=== PATIENT | female | born 1955 | race Caucasian/White ===

== ENCOUNTER 2020-03-30 09:34 | Outpatient (CLI) | payer OTHER, SELFPAY ==
--- NOTE | ~2020-03-30 | MM_ITS ---
EXAMINATION: MM screening kye BI w daniele HISTORY: Screening mammogram TECHNIQUE: Craniocaudal and mediolateral oblique 3-D tomosynthesis images were obtained and synthetic 2-D images were generated. CAD analysis was submitted and interpreted. COMPARISON: No prior mammogram is available for comparison at this institution. BREAST PARENCHYMAL COMPOSITION: There are scattered areas of fibroglandular density. FINDINGS: Biopsy marker on the right; history of prior benign right breast biopsy. Multiple bilateral mid to lower outer breast masses are suggested. Bilateral diagnostic mammogram and bilateral breast ultrasound examination are recommended. IMPRESSION: 1. Multiple bilateral masses are suggested in the mid to lower outer breast. 2. Bilateral diagnostic mammography and bilateral breast ultrasound examination are recommended. BI-RADS Category 0: Incomplete: Needs additional imaging evaluation. Reviewed, dictated and finalized at location A.
== END 2020-03-30 09:35 | disposition home or self-care (01) ==
LOC: ANHIMG 09:38
PROVIDERS: PCP Family Medicine; Visit Provider Obstetrics & Gynecology
DX: Z12.31 Encounter for screening mammogram for malignant neoplasm of breast (principal); R92.8 Other abnormal and inconclusive findings on diagnostic imaging of breast
CPT/HCPCS: 77063; 77067

== ENCOUNTER 2020-04-20 11:46 | Outpatient (CLI) | payer OTHER, SELFPAY ==
--- NOTE | ~2020-04-20 | MMUS_ITS ---
EXAMINATION: MM diagnostic mammo BI, US breast BI complete HISTORY: Bilateral small masses suggested on 03/30/2020 bilateral digital screening mammogram examinati on TECHNIQUE: Additional full field mediolateral and spot ML, MLO and cc 3-D tomosynthesis images of bot h breasts were performed and synthetic 2-D images were generated. CAD analysis was submitted and inte rpreted. High resolution bilateral complete breast ultrasound was performed. COMPARISON: 03/30/2020 bilateral digital screening mammogram FINDINGS: MAMMOGRAPHIC FINDINGS: A circumscribed 4.5 mm mass is suggested in the mid outer right breast (MLO Tomosynthesis image 18/ ). There is a 5 mm probable lymph node the upper outer left breast (MLO Tomosynthesis image /). There is a circumscribed 3.3 mm opacity in the outer mid left breast (MLO Tomosynthesis image /). ULTRASOUND: Right breast: No suspicious mass or shadowing is detected. Left breast: 3:00 1 cm from nipple: 2 x 3 mm sonolucent lesion with no shadowing or internal vascularity suggests a small cyst 6:00 1 cm from nipple: Parallel circumscribed 2 x 3 mm x 3.6 mm sonolucency, likely a small cyst IMPRESSION: 1. Probable benign cyst of left breast 2. 6 month follow-up left breast ultrasound examination is recommended. BI-RADS category 3, probably benign findings. Reviewed, dictated and finalized at location A. IMPRESSION: 1. Probable benign cyst of left breast 2. 6 month follow-up left breast ultrasound examination is recommended. BI-RADS category 3, probably benign findings.
== END 2020-04-20 11:47 | disposition home or self-care (01) ==
PROVIDERS: PCP Family Medicine; Visit Provider Obstetrics & Gynecology
DX: R92.8 Other abnormal and inconclusive findings on diagnostic imaging of breast (principal)
CPT/HCPCS: 76641; 77066

== ENCOUNTER 2020-05-29 11:04 | Outpatient (CLI) | payer OTHER, SELFPAY ==
--- NOTE | 2020-06-02 07:38 | WPDHOLTEREM ---
Holter/Event Monitor Holter/Event Monitor Date of procedure: 05/29/20 Procedure Type: 48 hour holter monitor Indications: Palpitations Conclusion: 1. 48 hour holter monitor on 05/29/20. 2. Underlying rhythm is sinus rhythm. HR range 51-103 bpm; average HR 70 bpm. 3. There are 547 premature supraventricular complexes, 9 supraventricular couplets and 2 supraventricular triplets. No supraventricular tachycardia. 4. No premature ventricular complexes. No ventricular tachycardia. 5. No sinoatrial or atrioventricular blocks. No significant pauses greater than 2 seconds. 6. Patient reports symptoms of skipped beats, palpitations which demonstrate sinus rhythm, HR range 71-94 bpm and one episode with PAC's.
== END 2020-05-29 11:05 | disposition home or self-care (01) ==
LOC: ANHCARD 11:05
PROVIDERS: PCP Family Medicine; Visit Provider Physician Assistant
DX: R00.2 Palpitations (principal)
CPT/HCPCS: 93225; 93226

== ENCOUNTER 2020-10-30 11:09 | Outpatient (CLI) | payer OTHER, SELFPAY ==
--- NOTE | ~2020-10-30 | US_ITS ---
EXAMINATION: US breast LT limited HISTORY: Six-month follow-up for probably benign left breast masses TECHNIQUE: Limited left breast ultrasound is performed. FINDINGS: There is a 2 mm cyst at the 3:00 location 1 cm from the nipple. There is a stable 4 mm x 2 mm oval, circumscribed, parallel, hypoechoic mass with no posterior features or internal vascularity at the 1:00 angiogram at the 6:00 location 1 cm from the nipple. IMPRESSION: Probably benign left breast mass at the 6:00 location. Follow-up targeted left breast ultrasound six months is recommended. BI-RADS category 3, probably benign findings. Reviewed, dictated and finalized at location A. [employer]
== END 2020-10-30 11:10 | disposition home or self-care (01) ==
PROVIDERS: PCP Family Medicine; Visit Provider Obstetrics & Gynecology
DX: R92.8 Other abnormal and inconclusive findings on diagnostic imaging of breast (principal)
CPT/HCPCS: 76642

== ENCOUNTER 2021-04-02 09:32 | Outpatient (CLI) | payer OTHER, SELFPAY ==
--- NOTE | ~2021-04-02 | MM_ITS ---
EXAMINATION: MM screening kye BI w daniele HISTORY: Screening mammogram TECHNIQUE: Craniocaudal and mediolateral oblique 3-D tomosynthesis images were obtained and synthetic 2-D images were generated. CAD analysis was submitted and interpreted. COMPARISON: 10/2020 Limited left breast ultrasound 04/20/2020 bilateral diagnostic mammogram and bilateral complete breast ultrasound 03/30/2020, 03/12/2019, 03/05/2018 bilateral digital screening mammogram examinations BREAST PARENCHYMAL COMPOSITION: There are scattered areas of fibroglandular density. FINDINGS: There are bilateral mammographic asymmetries. Bilateral diagnostic mammography and breast u ltrasound examination are recommended. IMPRESSION: 1. Bilateral mammographic asymmetries 2. Bilateral diagnostic mammography and breast ultrasound examination are recommended. BI-RADS Category 0: Incomplete: Needs additional imaging evaluation. Reviewed, dictated and finalized at location A. IMPRESSION: 1. Bilateral mammographic asymmetries 2. Bilateral diagnostic mammography and breast ultrasound examination are recom mended. BI-RADS Category 0: Incomplete: Needs additional imaging evaluation.
== END 2021-04-02 09:33 | disposition home or self-care (01) ==
LOC: ANHIMG 09:34
PROVIDERS: PCP Family Medicine; Visit Provider Obstetrics & Gynecology
DX: Z12.31 Encounter for screening mammogram for malignant neoplasm of breast (principal); R92.8 Other abnormal and inconclusive findings on diagnostic imaging of breast
CPT/HCPCS: 77063; 77067

== ENCOUNTER 2021-05-11 11:46 | Outpatient (CLI) | payer OTHER, SELFPAY ==
--- NOTE | ~2021-05-11 | MMUS_ITS ---
EXAMINATION: MM diagnostic mammo BI, US breast BI limited HISTORY: Bilateral asymmetries on screening mammogram TECHNIQUE: Additional 3-D tomosynthesis images of the breasts were performed and synthetic 2-D images were generated. CAD analysis was submitted and interpreted. High resolution limited bilateral breast ultrasound was performed. COMPARISON: 04/02/2021, 10/30/2020, 04/20/2020, 03/30/2020, 03/12/2019, 03/05/2018 FINDINGS: MAMMOGRAPHIC FINDINGS: Left breast: There is a 9 mm oval, obscured, equal density mass in the middle third of the outer [address] 6 cm from the nipple likely reflecting a cyst when compared to prior mammograms and ultrasounds. Right breast: There is a return to baseline fibroglandular appearance with spot compression of the ri ght breast in the area questioned on screening mammogram. ULTRASOUND: Left breast: There is an 8 mm cyst at the 2:00 location 3 cm from the nipple corresponding to the kye mographic finding in question. A 2 mm cyst is noted at the 3:00 location 2 cm from the nipple. Right breast: There are 3 mm cyst at the 8:00 location 4 cm from the nipple in the 10:00 location 3 c m from the nipple. IMPRESSION: 1. No mammographic or sonographic evidence of malignancy. 2. Recommend routine screening mammography in one year. BI-RADS Category 2: Benign finding(s). Reviewed, dictated and finalized at location A. IMPRESSION: 1. No mammographic or sonographic evidence of malignancy. 2. Recommend routine screening mammography in one year. BI-RADS Category 2: Benign finding(s).
== END 2021-05-11 11:47 | disposition home or self-care (01) ==
LOC: ANHIMG 11:47
PROVIDERS: PCP Family Medicine; Visit Provider Obstetrics & Gynecology
DX: R92.8 Other abnormal and inconclusive findings on diagnostic imaging of breast (principal)
CPT/HCPCS: 76642; 77066

== ENCOUNTER → 2022-02-07 08:28 | Outpatient (CLI) | payer OTHER, SELFPAY ==
--- NOTE | ~2022-02-07 | MR_ITS ---
EXAMINATION: MR foot LT wo con DATE: 02/07/2022 09:05 INDICATION: Tibial tendinitis. TECHNIQUE: Magnetic resonance imaging (MRI) of the left foot was performed without intravenous contra st. Sequences included sagittal and coronal T1-weighted FSE, sagittal STIR FSE, coronal PD-weighted F S FSE, and axial PD-weighted FSE and PD-weighted FS FSE. COMPARISON: None FINDINGS: Bone alignment is normal. No fracture. There is a type II navicular. There is edema-like ma rrow signal intensity in medial aspect of head of talus. There is mild osteoarthritis of many of the midfoot joints. There is moderate osteoarthritis of medial naviculocuneiform joint. There is mild ank le joint osteoarthritis with subchondral edema-like marrow signal intensity in lateral talar dome. Th ere is a partial tear of posterior tibialis tendon. There is tenosynovitis involving posterior tibial is, flexor digitorum longus, and flexor hallucis longus. There is mild peroneus longus tendinopathy. The anterior ankle tendons are normal. Achilles tendon is normal. Lisfranc ligament is normal. There is a partial tear of superficial component of deltoid ligament involving the majority of the fibers. The fibers of deep component of deltoid ligament are predominantly intact. There are changes of prior sprains of anterior talofibular ligament and calcaneofibular ligament characterized increased signal intensity. Posterior talofibular ligament is normal. There are changes of prior sprain of anterior t ibiofibular ligament characterized by thickening and increased signal intensity. Posterior tibiofibul ar ligament is normal. IMPRESSION: 1. Partial tear of posterior tibialis tendon. 2. Tenosynovitis involving posterior tibialis, flexor digitorum longus, and flexor hallucis longus. 3. Medial and lateral ankle sprains, worst at superficial component of deltoid ligament where a parti al tear involves the majority of the fibers. 4. Polyarticular osteoarthritis. Reviewed, dictated and finalized at location A. IMPRESSION: 1. Partial tear of posterior tibialis tendon. 2. Tenosynovitis involving posterior tibialis, flexor digitorum longus, and fle xor hallucis longus. 3. Medial and lateral ankle sprains, worst at superficial component of deltoid ligament where a partial tear involves the majority of the fibers. 4. Polyarticular osteoarthritis.
== END ==
PROVIDERS: PCP Family Medicine; Visit Provider Podiatrist Foot & Ankle Surgery
DX: M76.822 Posterior tibial tendinitis, left leg (principal); M19.072 Primary osteoarthritis, left ankle and foot; S93.402A Sprain of unspecified ligament of left ankle, initial encounter; X58.XXXA Exposure to other specified factors, initial encounter
CPT/HCPCS: 73718

== ENCOUNTER 2022-04-26 09:07 | Outpatient (CLI) | payer OTHER, SELFPAY ==
--- NOTE | ~2022-04-26 | DEXA_ITS ---
Bone Density Report Name: ALISSON GOLDBERG Age: 66 Sex: Female Ethnicity: White Date of : 1955 Indication: postmenopausal; screening for osteoporosis; height loss; Referring Provider: TERESITA DISLA Study: Bone densitometry was performed. Exam Date: April 26, 2022 Accession number: [id number] Bone Density: Region BMD T-score Z-score Classification AP Spine(L1-L4) 1.152 1.0 2.8 Normal Femoral Neck (Left) 0.903 0.5 2.0 Normal Total Hip (Left) 1.056 0.9 2.2 Normal Femoral Neck (Right) 0.896 0.4 2.0 Normal Total Hip (Right) 1.042 0.8 2.1 Normal Total Hip Mean 1.049 0.9 2.2 Normal World Health Organization criteria for BMD impression classify patients as: Normal (T-score at or above -1.0), Osteopenia (T-score between -1.0 and -2.5), or Osteoporosis (T-score at or below -2.5). 10-year Fracture Risk: FRAX not reported because: All T-scores for Spine Total, Hip Total, Femoral Neck at or above -1.0 Clinical Information Provided by Patient: Has used the following medications: Vitamin D, Calcium Patient maximum height was 65 Menopause Age: 55 Drinks caffeinated beverages Onset of menses at age 15 Number of children 2 Impression: The patient has normal bone mass. Discussion: BONE DENSITY IS ABOVE THE MINIMUM DESIRABLE LEVEL AT ALL SKELETAL SITES TESTED. This patient?s bone mineral density is above the minimum desirable level (T-score -1.0 or better) at all sites measured. The patient should follow a healthful lifestyle (good nutrition with adequate calcium and vitamin D, and appropriate weight-bearing exercise). Follow-Up: Consider repeating this study in 5 years or sooner if there is some new clinical indication. Reported by: REMY on 04/26/2022 9:37:00 AM. Reviewed, dictated and finalized at location ACasper [facility]ITALJose Antonio
--- NOTE | ~2022-04-26 | MM_ITS ---
EXAMINATION: MM screening kye BI w daniele HISTORY: Screening TECHNIQUE: Craniocaudal and mediolateral oblique 3-D tomosynthesis images were obtained and synthetic 2-D images were generated. CAD analysis was submitted and interpreted. COMPARISON: Comparison to multiple prior studies sequentially, with oldest reviewed study dated 03/05. BREAST PARENCHYMAL COMPOSITION: There are scattered areas of fibroglandular density. FINDINGS: There is no evidence of suspicious mass, calcification, or architectural distortion to sugg est malignancy in either breast. There has been no suspicious interval change. IMPRESSION: 1. No mammographic evidence of malignancy. 2. Recommend routine screening mammography in one year. BI-RADS Category 1: Negative Reviewed, dictated and finalized at location A.
== END 2022-04-26 09:08 | disposition home or self-care (01) ==
LOC: ANHIMG 09:08
PROVIDERS: PCP Family Medicine; Visit Provider Obstetrics & Gynecology Gynecology
DX: Z12.31 Encounter for screening mammogram for malignant neoplasm of breast (principal); Z78.0 Asymptomatic menopausal state
CPT/HCPCS: 77063; 77067; 77080

== ENCOUNTER → 2022-09-03 09:09 | Outpatient (CLI) | payer OTHER, SELFPAY ==
--- NOTE | ~2022-09-03 | XR_ITS ---
XR knee RT 3V DATE: 09/03/2022 10:33 INDICATION: Medial knee pain. No injury. TECHNIQUE: 3 views COMPARISON: None FINDINGS: Small suprapatellar knee joint effusion. There is minimal periarticular spurring of the patella consistent with osteoarthritis. There is mild to moderate loss of height of medial compartment joint space. No fracture or dislocation, periosteal reaction or bone destruction, radiopaque intra-articular loose body or chondral calcinosis. IMPRESSION: Osteoarthritis at the medial and patellofemoral prominence Mild knee joint effusion Reviewed, dictated and finalized at location A. APEUTIC MASSAGE TECHNICIAN
== END ==
PROVIDERS: PCP Family Medicine; Visit Provider Family Medicine
DX: M25.461 Effusion, right knee (principal); M17.11 Unilateral primary osteoarthritis, right knee
CPT/HCPCS: 73562

== ENCOUNTER → 2022-12-09 14:55 | Outpatient (CLI) | payer MEDICARE, SELFPAY ==
--- NOTE | ~2022-12-09 | XR_ITS ---
EXAMINATION: XR lumbar spine 2-3V DATE: 12/09/2022 15:11 INDICATION: Right-sided sciatica. TECHNIQUE: 3 views of lumbar spine were obtained. COMPARISON: None. FINDINGS: There is 23 degrees levoscoliosis of thoracolumbar spine. There is 4 mm anterolisthesis of L5 on S1. Vertebral body heights are normal. There is severely decreased disc height at L1-L2, L2-L3, and L3-L4 and moderately decreased disc height at L5-S1. There is severe facet joint osteoarthritis in lower lumbar spine. IMPRESSION: 1. Severe lumbar spondylosis. 2. Thoracolumbar levoscoliosis. Reviewed, dictated and finalized at location A. E CLERK
--- NOTE | ~2022-12-09 | XR_ITS ---
EXAMINATION: XR hip RT min 2V DATE: 12/09/2022 15:11 INDICATION: Right-sided sciatica. TECHNIQUE: 2 views of right hip were obtained. COMPARISON: None. FINDINGS: Bone alignment is normal. No fracture. There is mild right hip osteoarthritis. Osseous pubi s is noted. IMPRESSION: 1. Mild right hip osteoarthritis. Reviewed, dictated and finalized at location A. CTOR OF RESERVATIONS
== END ==
PROVIDERS: PCP Family Medicine; Visit Provider Nurse Practitioner
DX: M54.31 Sciatica, right side (principal); M47.816 Spondylosis without myelopathy or radiculopathy, lumbar region; M41.9 Scoliosis, unspecified; M16.11 Unilateral primary osteoarthritis, right hip
CPT/HCPCS: 72100; 73502

== ENCOUNTER 2023-07-16 15:15 | Outpatient (CLI) | payer MEDICARE, SELFPAY ==
--- NOTE | ~2023-07-16 | MM_ITS ---
EXAMINATION: MM screening kye BI w daniele HISTORY: Screening TECHNIQUE: Craniocaudal and mediolateral oblique 3-D tomosynthesis images were obtained and synthetic 2-D images were generated. CAD analysis was submitted and interpreted. COMPARISON: Comparison to multiple prior studies sequentially, with oldest reviewed study dated 03/12. BREAST PARENCHYMAL COMPOSITION: There are scattered areas of fibroglandular density. FINDINGS: There is no evidence of suspicious mass, calcification, or architectural distortion to sugg est malignancy in either breast. There has been no suspicious interval change. IMPRESSION: 1. No mammographic evidence of malignancy. 2. Recommend routine screening mammography in one year. BI-RADS Category 1: Negative Reviewed, dictated and finalized at location A.
== END 2023-07-16 15:16 | disposition home or self-care (01) ==
LOC: ANHIMG 15:19
PROVIDERS: PCP Family Medicine; Visit Provider Nurse Practitioner
DX: Z12.31 Encounter for screening mammogram for malignant neoplasm of breast (principal)
CPT/HCPCS: 77063; 77067

== ENCOUNTER 2025-07-12 00:29 | Day surgery (SDC) | payer MEDICARE, SELFPAY ==
--- OUTSIDE RECORDS SUMMARY | 2025-07-12 00:31 | XMS_ITS | Clinical Summary ---
Author Organization [address] Address [address] [place] [id number] Care Team Providers Care Vp Account Director Name Role Phone Tre Daly MD Primary Care Provider [phone] Allergies No known active allergies Medications atenolol (TENORMIN) 50 mg tablet 08/15/2019 Active simvastatin (ZOCOR) 20 mg tablet 08/15/2019 Active TRIAMTERENE-HYDROC HLOROTHIAZIDE 37.5-25 mg per tablet 08/31/2019 Active Active Problems No known active problems Social History Tobacco Use Types Packs/Day Years Used Date Smoking Tobacco: Never Assessed Personal Safety Answer Date Recorded Getting School Help Needed Not on file 01/10 Comments Unknown Sex and Gender Information Value Date Recorded Sex Assigned at Not on file 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
[2025-07-12 06:24] VITALS: BP 149/89; PULSE 69; RESP 16; TEMP 36.7; O2SAT 100; BMI 30.6
[2025-07-12] MEDS: LACTATED RINGERS 1,000 ML 150 ML IV CONT (06:35)
--- NOTE | 2025-07-12 07:16 | P.PNAN_ITS ---
Anes - Initial Pre Proc Eval Procedure: Operation Date: 07/12/25 07:30 Proposed Procedures p Screening Colonoscopy - Carlton Benson DO Date/Time: 07/12/25 07:16 Surgeon: Carlton Benson DO Pre Op Diagnosis: Neoplasm screening Patient Data Age: 70 Gender: F Height: 1.63 m Weight: 81 kg Last Vital Signs Temp 98.0 F 07/12/25 06:24 Pulse 69 07/12/25 06:24 Resp 16 07/12/25 06:24 BP 149/89 H 07/12/25 06:24 Pulse Ox 100 07/12/25 06:24 O2 Del Method Room Air 07/12/25 06:24 Allergies Allergy/AdvReac Type Severity Reaction Status Date / Time hydrocodone Allergy Unknown Nausea Verified 07/12/25 06:23 latex Allergy Unknown Skin Verified 07/12/25 06:23 Reaction Home Medications ?Medication ?Instructions ?Recorded ?Confirmed ?Type rosuvastatin 40 mg tablet 40 mg PO DAILY 10/09/2106/27 History atenolol 50 mg tablet See Rx Instructions .Route 0 01/21/25 07/12/25 Rx .COMPLEX #90 tabs triamterene 37.5 0.5 tablet PO DAILY #90 tabs 03/29/25 07/12/25 Rx mg-hydrochlorothiazide 25 mg tablet Patient hx anesthesia problems: none Family hx anesthesia problems: none Results Review: All pre-operative results and documents have been reviewed as part of the pre- operative evaluation. [facility] Past Medical History Medical History Scoliosis Other nonrheumatic mitral valve disorders Family History Family History Father Diabetes mellitus Mother Hypertension Family history of cardiovascular disease Cerebrovascular accident Social History Social History Smoking status: Never smoker Alcohol intake: current Alcohol use details: occasionally Substance use: never Substance use type: does not use Do You Feel Safe in your Home?: Yes Lack of Transportation: No Lack of Food: Never True Current Housing: I Have Housing Concerned About Future Housing: No Difficulty Paying Gas/Electric Bills: No Difficulty Paying for Meds: No Currently Unemployed: No Education: High School Diploma/GED Difficulty w/ Childcare or Family Care: No Anes - Eval Final PreProcedure Day of Procedure 07/12/25 07:16 Patient weight: obese Lungs: normal air movement Airway: Mallampati scale class II Neurological: alert and oriented Last oral intake: >/= 8 hours ASA classification: II Emergent: no Anesthetic plan: proceed Anesthesia type and monitoring: general GIVS and standard monitoring Results Review: All pre-operative results and documents have been reviewed as part of the pre- operative evaluation. Hyperlipidemia, HTN. Informed Consent: The patient's anesthetic plan and its attendant risks and benefits were discussed with the patient/family/POA. Questions were solicited and answers provided to the satisfaction of the patient/family/POA.
--- NOTE | 2025-07-12 07:25 | PM.IMHP ---
H&P: HPI History of Present Illness Date/Time: 07/12/25 07:25 Chief Complaint: Screening for colorectal cancer Narrative: this is a 70-year-old woman comes in for screening colonoscopy. She last had a colonoscopy about 10 years ago and this was normal. She denies any hematochezia or melena. She denies family history of colon cancer. Review of Systems Review of Systems: All systems reviewed & are unremarkable except as noted in HPI and below Constitutional: Constitutional: Denies chills, Denies fever(s), Denies headache(s) and Denies weight loss Eyes: Eyes: Denies change in vision ENT: Denies dizziness, Denies headache(s), Denies neck mass and Denies throat swelling Cardiovascular: Cardiovascular: Denies chest pain, Denies lightheadedness and Denies dyspnea Respiratory: Respiratory: Denies cough, Denies dyspnea and Denies wheezing Gastrointestinal: Gastrointestinal: Denies abdominal pain, Denies change in bowel habits, Denies nausea and Denies vomiting Genitourinary: Genitourinary: Denies hematuria and Denies dysuria Musculoskeletal: Musculoskeletal: Reports as per HPI Integumentary/Breasts: Skin/Breast: Reports as per HPI Neurologic: Denies dizziness and Denies headache(s) Allergic/Immunologic: Allergic/Immunologic: Denies throat swelling and Denies wheezing PMFSH Past Medical History Medical History Scoliosis Other nonrheumatic mitral valve disorders Family History Family History Father Diabetes mellitus Mother Hypertension Family history of cardiovascular disease Cerebrovascular accident Social History Social History Smoking status: Never smoker Alcohol intake: current Alcohol use details: occasionally Substance use: never Substance use type: does not use Do You Feel Safe in your Home?: Yes Lack of Transportation: No Lack of Food: Never True Current Housing: I Have Housing Concerned About Future Housing: No Difficulty Paying Gas/Electric Bills: No Difficulty Paying for Meds: No Currently Unemployed: No Education: High School Diploma/GED Difficulty w/ Childcare or Family Care: No Meds Home Medications and Allergies Home Medications ?Medication ?Instructions ?Recorded ?Confirmed ?Type rosuvastatin 40 mg tablet 40 mg PO DAILY 10/09/21 07/12/25 History atenolol 50 mg tablet See Rx Instructions .Route 01/21/25 07/12/25 Rx .COMPLEX #90 tabs triamterene 37.5 0.5 tablet PO DAILY #90 tabs 03/29/25 07/12/25 Rx mg-hydrochlorothiazide 25 mg tablet Allergies Allergy/AdvReac Type Severity Reaction Status Date / Time hydrocodone Allergy Unknown Nausea Verified 07/12/25 06:23 latex Allergy Unknown Skin Verified 07/12/25 06:23 Reaction Vital Signs Vital Signs - 24 hr 07/12/25 06:24 Temperature 98.0 F Pulse Rate 69 Respiratory Rate 16 Blood Pressure 149/89 H Pulse Oximetry 100 Oxygen Delivery Room Air Exam Const: General: no acute distress and alert Orientation/consciousness: patient oriented x3 HENMT: Head: normocephalic and atraumatic Ears: hearing grossly normal bilaterally Face/Nose/Sinus: Normal nares present Mouth: Yes Normal oral and palatal mucosa present Eyes: Periorbital: periorbital findings normal Sclera: sclerae normal EOM: EOMs intact bilaterally Neck: Neck: normal visual inspection, no lymphadenopathy and trachea midline Chest: Chest palpation & inspection: normal inspection of the chest Resp: Effort & Inspection: normal respiratory effort Auscultation: clear to auscultation bilaterally Cardio: Jugular venous distension: no JVD Rate: regular rate Rhythm: regular rhythm Heart sounds: S1 normal heart sound present and S2 normal heart sound present Peripheral pulses: Peripheral pulses 2+ throughout GI: Inspection: normal to inspection GI Palp: Yes Soft to palpation, No Tenderness to palpation present (GI), No Guarding due to palpation present (GI) and No Rebound tenderness present Percussion: Yes normal to percussion Auscultation: normal bowel sounds : General: Yes no CVA tenderness Back/Spine/Pelvis: Back: no CVA tenderness Neuro: General: patient oriented x3, no focal motor deficits and CN's II-XI intact bilaterally Cognition (Neuro): normal cognition Speech: normal speech Motor exam (neuro): 5/5 motor strength present throughout Extrem: General: capillary refill normal and no clubbing, cyanosis or edema Assessment and Plan Assessment and plan (1) Screening for colorectal cancer: Code(s): Z12.11 - Encounter for screening for malignant neoplasm of colon; Z12.12 - Encounter for screening for malignant neoplasm of rectum Status: Acute Assessment and Plan: I have recommended colonoscopy. I have discussed the procedure, risks, benefits, and alternatives. Questions were answered. Patient is agreeable to proceed.
--- NOTE | 2025-07-12 07:49 | SUR.OPER ---
Dr. Benson unable to reach cecum during colonoscopy, procedure done from hepatic flexure. Stiffening wire, abdominal pressure, and supine positioning used to attempt to reach cecum.
[2025-07-12 07:54] VITALS: BP 102/59; PULSE 70; RESP 21; O2SAT 94
[2025-07-12 08:04] VITALS: BP 108/56; PULSE 65; RESP 17; O2SAT 96
[2025-07-12 08:14] VITALS: BP 101/52; PULSE 60; RESP 18; O2SAT 98
== END 2025-07-12 08:25 | disposition home or self-care (01) ==
PROVIDERS: PCP Family Medicine; Visit Provider Surgery
PROC: 0DJD8ZZ Inspection of Lower Intestinal Tract, Via Natural or Artificial Opening Endoscopic (ICD-10-PCS; CPT 45378; principal; 2025-07-12 07:30)
DX: Z12.11 Encounter for screening for malignant neoplasm of colon (principal); K57.30 Diverticulosis of large intestine without perforation or abscess without bleeding; E78.5 Hyperlipidemia, unspecified; I10 Essential (primary) hypertension; M41.9 Scoliosis, unspecified; I34.89 Other nonrheumatic mitral valve disorders; E66.9 Obesity, unspecified; Z68.30 Body mass index [BMI] 30.0-30.9, adult; Z82.49 Family history of ischemic heart disease and other diseases of the circulatory system
CPT/HCPCS: G0121; J2003; J2704; J7120